=== PATIENT | male | born 1960 | race Caucasian/White ===

== ENCOUNTER → 2016-12-26 | Outpatient (CLI) | payer BC ==
[~2016-12-26] MED LIST: AMX500 PO; ARLOT OT; ASPI81TA28 PO; BNC20 PO; GLCPUNK; GLYB5TAB8 PO; KETO10TA PO; LPT10 PO; METF1000 PO; OXYC-57 PO; PSDUNK; REPA2TAB13 PO; SITA100T3 PO; THERAFLU
[2016-12-26 16:44] LABS: BASO % 0.4 %; BASO ABS # 0.03 K/uL (0-0.2); COMPLETE YES; HEMATOCRIT 41.9 % (42-52); IG% 0.2 %; MEAN CELL VOLUME 82.5 fL (80-100); MEAN CORPUSCULAR HEMOGLOBIN 29.5 pg (25-34); MEAN CORPUSCULAR HGB CONC 35.8 g/dl (32-36); MEAN PLATELET VOLUME 9.3 fL (7.4-10.4); NEUT % 62.4 %; PLATELET COUNT 224 K/uL (130-400); RED BLOOD COUNT 5.08 M/uL (4.7-6.1); WHITE BLOOD COUNT 8.21 K/uL (4.8-10.8)
[2016-12-26 17:11] LABS: BLOOD UREA NITROGEN 12 mg/dl (7-18); BUN/CREATININE RATIO 13.6 (10-20); CALCIUM 9.6 mg/dl (8.5-10.1); CARBON DIOXIDE 28 mmol/L (21-32); CHLORIDE 101 mmol/L (98-107); CREATININE 0.86 mg/dl (0.60-1.40); GLUCOSE 195 mg/dl (70-99); POTASSIUM 4.1 mmol/L (3.5-5.1); SODIUM 135 mmol/L (136-145)
== END | disposition home or self-care (01) ==
LOC: C.CPL 15:53
PROVIDERS: ATTEND Orthopaedic Surgery
DX: M75.21 Bicipital tendinitis, right shoulder (principal)

== ENCOUNTER → 2017-01-05 | Day surgery (SDC) | payer BC ==
[2016-12-30 08:06] VITALS: Ht 182.9 cm; Wt 120.5 kg
[~2017-01-05] VITALS: Ht 182.9 cm; Wt 120.5 kg
[~2017-01-05] MED LIST changes: -AMX500 PO; -ARLOT OT; +ATROPINE SULFATE 0.1 MG/ML 5ML SYR IV PRN; -BNC20 PO; +BUPIVACAINE/EPINEPHRINE 0.25% 1:200,000 30 ML VIAL ONE; +CEFAZOLIN 3000 MG/65 ML D5W IV SCH; +EpHEDrine SULFATE INJ 50 MG/ML AMP IV PRN; +EpINEphrine INJ 1MG/ML AMP 1 MG/ML AMP ONE; +FENTANYL CITRATE INJ 50 MCG/1 ML 2 ML VIAL IV PRN; +FENTANYL CITRATE INJ 50 MCG/1 ML 2 ML VIAL ONE; -GLCPUNK; +LACTATED RINGER'S 1000ML 1,000 ML IV SCH; +LIDOCAINE HCL 2% 2 ML VIAL (20MG/ML) ONE; +METHYLPREDNISOLONE ACETATE 80 MG/ML VIAL ONE; +MIDAZOLAM HCL 1 MG/ML 2ML VIAL ONE; +ONDANSETRON INJ 2 MG/ML 2 ML VIAL IV PRN; +OXYCODONE/ACETAMINOPHEN 5-325 TAB PO PRN; +PROPOFOL IV EMULSION 10 MG/ML 20 ML VIAL IV ONE; -PSDUNK; +ROPIVACAINE 0.5% 5 MG/ML 30 ML VIAL ONE; +SODIUM CHLORIDE 0.9% 1000ML 1,000 ML IV SCH; -THERAFLU
--- NOTE | 2017-01-05 10:47 | History & Physical Bridge - [place] ---
H&P Re-Evaluation Bridge Note: I have examined the patient, reviewed the History & Physical and in the interval since the performance of the History & Physical I have noted the following changes of clinical significance: No changes noted
--- NOTE | 2017-01-05 14:39 | Discharge Instructions-SurgCtr ---
Discharge Instructions Date of Service Jan 05, 2017. Visit Reason for Visit: Right Shulder Joint Pain, Biceps Tendinitis Discharge Discharge Diagnosis / Problem: SAME ABOVE Discharge Goals Goal(s): Decrease discomfort, Improve function Medications Stopped Medications Name(s): Metformin, stopped taking Monday. Restart Stopped Medication(s): AUGUST RESTART 01/05/2017 Activity Recommendations Activity Limitations: as noted below Lifting Limitations: gradually increase as tolerated Exercise/Sports Limitations: gradually increase as tolerated Shower/Bathe: tomorrow Anesthesia . Post Anesthesia Instructions: If you have had General Anesthesia or IV Sedation: * Do not drive today. * Resume driving when surgeon permits. * Do not make important decisions or sign legal documents today. * Call surgeon for: 1. Temperature elevations greater than 101 degrees F. 2. Uncontrollable pain. 3. Excessive bleeding. 4. Persistent nausea and vomiting. 5. Medication intolerance (nausea, vomiting or rash). * For nausea and vomiting use only clear liquids such as: tea, soda, bouillon until nausea subsides, then gradually increase diet as tolerated. * If you have any concerns or questions, call your surgeon's office. If physician is unavailable and it is an emergency, call 911 or go to the nearest emergency room. . Instructions / Follow-Up Instructions / Follow-Up MEDICATIONS: * Resume previous medications unless instructed otherwise by your surgeon. * Always take pain medication on a full stomach or with food to avoid upset stomach. * Do not drink alcohol or drive while taking narcotics. * Ibuprofen or Tylenol may be taken if narcotic not needed. SPECIAL CARE INSTRUCTIONS: __ None _X_ Keep extremity elevated and iced x 48 hours; apply ice 20-30 minutes 8-10 times/day. May remove at night. _X_ Sling ((REMOVE AFTER 24 HOURS) __24 hrs/day __ Remove at night __ Shoulder Immobilizer __ 24 hrs/day __ Remove at night _X_ Dressing __ Maintain until seen in office, may shower with plastic over site _X_ Remove dressings in 24-48 hours and then may shower _X_ Cover incisions with band-aids after showering __ Do not remove steri-strips Call physician if chills or temperature rises above 102 degrees or pain unrelieved by prescribed pain medications at . . Diet Recommendations Home Diet: no limitations Procedures Procedures Performed: Right Shoulder Arthroscopic Capsular Release Pending Studies Studies pending at discharge: no Work Instructions Return To Work: 3 days (OR WHEN PAIN IS CONTROLLED ) Lifting Limitations: none Medical Emergencies . Who to Call and When: Medical Emergencies: If at any time you feel your situation is an emergency, please call 911 immediately. . Non-Emergent Contact Non-Emergency issues call your: Primary Care Provider Call Non-Emergent contact if: you have a fever, temperature is above 101.5 . . "Provider Documentation" section prepared by Jake Murry. .
--- NOTE | 2017-01-05 15:06 | Anesthesiology Progress Note ---
Anesthesia Post Op Note Date & Time Jan 05, 2017 at 15:06 Vital Signs Pain Intensity: 5 Vital Signs Past 12 Hours Date Time Temp Pulse Resp B/P (MAP) Pulse Ox O2 Delivery O2 Flow Rate FiO2 01/05/17 14:36 36.5 66 10 128/83 97 Room Air 01/05/17 13:53 0 01/05/17 13:48 61 11 98 01/05/17 13:48 63 01/05/17 13:46 146/88 01/05/17 13:43 59 13 99 01/05/17 13:43 56 01/05/17 13:41 164/95 01/05/17 13:40 158/93 01/05/17 13:38 62 0 96 01/05/17 13:38 64 01/05/17 11:13 37 75 16 158/94 (115) 96 Room Air Notes Mental Status: alert / awake / arousable, participated in evaluation Pt Amnestic to Procedure: Yes Nausea / Vomiting: adequately controlled Pain: adequately controlled Airway Patency, RR, SpO2: stable & adequate BP & HR: stable & adequate Hydration State: stable & adequate Anesthetic Complications: no major complications apparent
[2017-01-05 15:17] VITALS: TEMP 36.3
--- NOTE | 2017-01-05 15:30 | [facility] Post Operative Brief Note ---
Immediate Operative Summary Operative Date Jan 05, 2017. Pre-Operative Diagnosis Right Shoulder Joint Pain, Biceps Tendonitis Post-Operative Diagnosis same Procedure(s) Performed Right Shoulder Arthroscopic Capsular Release Surgeon Dr. Bradley Weiss Drafting Engineer Surgeon(s) Basilio Murry PA-C Estimated Blood Loss 5cc Findings as above Specimens none Complication(s) None Disposition Recovery Room / PACU
[2017-01-05 15:49] VITALS: BP 138/82; PULSE 64; O2SAT 97
--- NOTE | 2017-01-05 19:26 | OPERATIVE REPORT ---
DATE OF OPERATION: 01/05/2017 PREOPERATIVE DIAGNOSIS: Adhesive capsulitis of the right shoulder. POSTOPERATIVE DIAGNOSIS: Same. PROCEDURE: Right shoulder diagnostic arthroscopy with extensive debridement, lysis of adhesions and manipulation under anesthesia. SURGEON: Dr. Richard Weiss. ABE TEACHER: Basilio Murry PA-C, whose assistance was necessary for positioning of the arm and helping with arthroscopic instrumentation. ANESTHESIA: General with a right interscalene nerve block. COMPLICATIONS: None. CONDITION: Stable to PACU. INDICATIONS: Gurmeet is a pleasant 56-year-old male who presented to my office with chronic pain and tightness of his right shoulder. He was unable to get an MRI. X-rays and clinical examination were diagnostic for adhesive capsulitis of the right shoulder. After failing extensive conservative treatment, he has elected to proceed with a capsular release. OPERATION AND FINDINGS: On 01/05/2017, he arrived at [facility] for the above procedure. He was seen in the preoperative holding area and the operative extremity was identified and signed. He was given a preoperative antibiotic and a right interscalene nerve block. He was taken back to the operating room, laid on the table in supine position and put under general anesthesia. He was then put into the beachchair position. The right shoulder was prepped and draped in sterile fashion. Time-out was done and the patient and operative extremity was properly identified. On preoperative physical examination, he had about 60 degrees of abduction and 40 degrees of external rotation and 0 degrees of internal rotation. A gentle manipulation was done under anesthesia to help facilitate insertion of the arthroscope. The scope was then placed in the posterior portal. Diagnostic arthroscopy showed grade 3 and 4 chondral changes off the posterior aspect of the humeral head. The middle and anterior aspects of the humeral head were intact. There was no cartilage damage on the glenoid. The supraspinatus, infraspinatus, teres minor and subscapularis were all checked and intact. The biceps tendon was intact with a normal size biceps suzanne mechanism. There was significant redness and scarring of the rotator interval as well as the middle glenohumeral ligament and inferior glenohumeral ligament. An anterior portal was made. A shaver was used to start the debridement of the intraarticular structures. Any loose soft tissue remnants were removed. An ablator was then used to do a lysis of adhesions to include complete release of the entire rotator interval all the way back to the base of the coracoid as well as release of the middle glenohumeral ligament and inferior glenohumeral ligament. Time was spent ensuring a complete release and protecting the axillary nerve and subscapularis. A shaver was then used to do a debridement removing all remaining unstable ligament structures and soft tissue. The superior capsule was also debrided. Arthroscopic instruments were then removed from the shoulder and gentle manipulation was done under anesthesia. I was able to get full range of motion of the shoulder. The portal sites were then closed with 3-0 nylon. The shoulder was then injected with 80 mg of Depo-Medrol and 5 mL of Marcaine. He was then placed in a soft dressing and regular arm sling. He was then extubated, transferred to a litter and taken to the postanesthesia care unit in stable condition. He tolerated the procedure well. I attest to the content of the Intraoperative Record and any orders documented therein. Any exception s are noted below.
== END | disposition home or self-care (01) ==
LOC: X.SURG 10:44
PROVIDERS: ATTEND Orthopaedic Surgery
DX: M75.01 Adhesive capsulitis of right shoulder (principal); I10 Essential (primary) hypertension; E78.00 Pure hypercholesterolemia, unspecified; E11.9 Type 2 diabetes mellitus without complications; Z79.84 Long term (current) use of oral hypoglycemic drugs; Z79.899 Other long term (current) drug therapy

== ENCOUNTER → 2017-03-15 | Outpatient (CLI) | payer BC ==
[~2017-03-15] MED LIST changes: -ATROPINE SULFATE 0.1 MG/ML 5ML SYR IV PRN; -BUPIVACAINE/EPINEPHRINE 0.25% 1:200,000 30 ML VIAL ONE; -CEFAZOLIN 3000 MG/65 ML D5W IV SCH; -EpHEDrine SULFATE INJ 50 MG/ML AMP IV PRN; -EpINEphrine INJ 1MG/ML AMP 1 MG/ML AMP ONE; -FENTANYL CITRATE INJ 50 MCG/1 ML 2 ML VIAL IV PRN; -FENTANYL CITRATE INJ 50 MCG/1 ML 2 ML VIAL ONE; -KETO10TA PO; -LACTATED RINGER'S 1000ML 1,000 ML IV SCH; -LIDOCAINE HCL 2% 2 ML VIAL (20MG/ML) ONE; -METHYLPREDNISOLONE ACETATE 80 MG/ML VIAL ONE; -MIDAZOLAM HCL 1 MG/ML 2ML VIAL ONE; -ONDANSETRON INJ 2 MG/ML 2 ML VIAL IV PRN; -OXYC-57 PO; -OXYCODONE/ACETAMINOPHEN 5-325 TAB PO PRN; -PROPOFOL IV EMULSION 10 MG/ML 20 ML VIAL IV ONE; +REPA2TAB12 PO; -REPA2TAB13 PO; -ROPIVACAINE 0.5% 5 MG/ML 30 ML VIAL ONE; -SODIUM CHLORIDE 0.9% 1000ML 1,000 ML IV SCH
[2017-03-15 19:17] LABS: BASO % 0.3 %; BASO ABS # 0.03 K/uL (0-0.2); COMPLETE YES; HEMATOCRIT 41.8 % (42-52); IG% 0.2 %; LYMPH % 36.1 %; LYMPH ABS # 3.11 K/uL (1.2-3.4); MEAN CELL VOLUME 84.6 fL (80-100); MEAN CORPUSCULAR HEMOGLOBIN 29.6 pg (25-34); MEAN CORPUSCULAR HGB CONC 34.9 g/dl (32-36); MEAN PLATELET VOLUME 9.2 fL (7.4-10.4); MONO % 7.7 %; NEUT % 53.7 %; PLATELET COUNT 208 K/uL (130-400); RED BLOOD COUNT 4.94 M/uL (4.7-6.1); WHITE BLOOD COUNT 8.62 K/uL (4.8-10.8)
[2017-03-15 19:53] LABS: BLOOD UREA NITROGEN 15 mg/dl (7-18); BUN/CREATININE RATIO 18.6 (10-20); CALCIUM 9.2 mg/dl (8.5-10.1); CARBON DIOXIDE 30 mmol/L (21-32); CHLORIDE 101 mmol/L (98-107); CREATININE 0.82 mg/dl (0.60-1.40); GLUCOSE 162 mg/dl (70-99); POTASSIUM 3.9 mmol/L (3.5-5.1); SODIUM 134 mmol/L (136-145)
== END | disposition home or self-care (01) ==
LOC: C.LAB 18:44
PROVIDERS: ATTEND Orthopaedic Surgery
DX: Z01.812 Encounter for preprocedural laboratory examination (principal); M65.4 Radial styloid tenosynovitis [de Quervain]

== ENCOUNTER → 2017-03-30 | Day surgery (SDC) | payer BC ==
[2017-03-14 15:25] VITALS: Ht 182.9 cm; Wt 120.5 kg
[~2017-03-30] VITALS: Ht 182.9 cm; Wt 120.5 kg
[~2017-03-30] MED LIST changes: +ATROPINE SULFATE 0.1 MG/ML 5ML SYR IV PRN; +BUPIVACAINE 0.25% 30 ML VIAL ONE; +CEFAZOLIN 2000MG IV PUSH 10 ML IV SCH; +CEFAZOLIN 3000MG IV PUSH 15 ML IV SCH; +EpHEDrine SULFATE INJ 50 MG/ML AMP IV PRN; +FENTANYL CITRATE INJ 50 MCG/1 ML 2 ML VIAL IV PRN; +FENTANYL CITRATE INJ 50 MCG/1 ML 2 ML VIAL ONE; +HYDR-5688 PO; +HYDROCODONE/ACETAMOPHEN 5/325MG TAB PO PRN; +LACTATED RINGER'S 1000ML 1,000 ML IV SCH; +LACTATED RINGER'S 1000ML 500 ML IV SCH; +LIDO 2%/EPINEPHRINE 1:100000 20 ML VIAL INFIL ONE; +LIDOCAINE HCL 2% 2 ML VIAL (20MG/ML) ONE; +MIDAZOLAM HCL 1 MG/ML 2ML VIAL ONE; +ONDANSETRON INJ 2 MG/ML 2 ML VIAL IV PRN; +PROPOFOL IV EMULSION 10 MG/ML 20 ML VIAL IV ONE; +SODIUM CHLORIDE 0.9% 1000ML 1,000 ML IV SCH
--- NOTE | 2017-03-30 07:24 | Discharge Instructions-SurgCtr ---
Discharge Instructions Date of Service Mar 30, 2017. Visit Reason for Visit: Right Radial Styloid Tenosynovitis Discharge Discharge Diagnosis / Problem: SAME ABOVE Discharge Goals Goal(s): Decrease discomfort, Improve function Medications Stopped Medications Name(s): METFORMIN STOPPED ON MONDAY Restart Stopped Medication(s): AUGUST RESTART 03/30/2017 Activity Recommendations Activity Limitations: as noted below Lifting Limitations: until after follow-up appointment Exercise/Sports Limitations: until after follow-up appointment Anesthesia . Post Anesthesia Instructions: If you have had General Anesthesia or IV Sedation: * Do not drive today. * Resume driving when surgeon permits. * Do not make important decisions or sign legal documents today. * Call surgeon for: 1. Temperature elevations greater than 101 degrees F. 2. Uncontrollable pain. 3. Excessive bleeding. 4. Persistent nausea and vomiting. 5. Medication intolerance (nausea, vomiting or rash). * For nausea and vomiting use only clear liquids such as: tea, soda, bouillon until nausea subsides, then gradually increase diet as tolerated. * If you have any concerns or questions, call your surgeon's office. If physician is unavailable and it is an emergency, call 911 or go to the nearest emergency room. . Instructions / Follow-Up Instructions / Follow-Up MEDICATIONS: * Resume previous medications unless instructed otherwise by your surgeon. * Always take pain medication on a full stomach or with food to avoid upset stomach. * Do not drink alcohol or drive while taking narcotics. * Ibuprofen or Tylenol may be taken if narcotic not needed. SPECIAL CARE INSTRUCTIONS: __ None _X_ Keep extremity elevated and iced x 48 hours; apply ice 20-30 minutes 8-10 times/day. May remove at night. __ Sling __24 hrs/day __ Remove at night __ Shoulder Immobilizer __ 24 hrs/day __ Remove at night _X_ Dressing __ Maintain until seen in office, may shower with plastic over site _X_ Remove dressings in 5 DAYS. MAY SHOWER SOONER IF COVERED WITH PLASTIC BAG _X_ Cover incisions with band-aids after showering __ Do not remove steri-strips Call physician if chills or temperature rises above 102 degrees or pain unrelieved by prescribed pain medications at . . Diet Recommendations Home Diet: no limitations Fluid Restriction: None Procedures Procedures Performed: Right Dequervain's Release Pending Studies Studies pending at discharge: no Work Instructions Return To Work: after follow-up Medical Emergencies . Who to Call and When: Medical Emergencies: If at any time you feel your situation is an emergency, please call 911 immediately. . Non-Emergent Contact Non-Emergency issues call your: Primary Care Provider Call Non-Emergent contact if: you have a fever, temperature is above 101.5 . . "Provider Documentation" section prepared by Jake Murry. .
[2017-03-30 07:25] VITALS: TEMP 36.3
--- NOTE | 2017-03-30 07:27 | [facility] Post Operative Brief Note ---
Immediate Operative Summary Operative Date Mar 30, 2017. Pre-Operative Diagnosis Right Radial Styloid Tenosynovitis Post-Operative Diagnosis Same Procedure(s) Performed Right Dequervain's Release Surgeon Dr. Weiss Rehab Services Aide Surgeon(s) None Estimated Blood Loss 5 ml Findings as above Specimens None Complication(s) None Disposition Recovery Room / PACU
--- NOTE | 2017-03-30 07:32 | Anesthesia Progress Nt - [facility] ---
Anesthesia Post Op Note Date & Time Mar 30, 2017 at 07:32 Vital Signs Pain Intensity: 0 Vital Signs Past 12 Hours Date Time Temp Pulse Resp B/P (MAP) Pulse Ox O2 Delivery O2 Flow Rate FiO2 03/30/17 07:25 36.3 72 16 106/65 (79) 94 Room Air 03/30/17 06:35 36.8 72 22 157/80 (105) 95 Room Air Notes Mental Status: alert / awake / arousable, participated in evaluation Pt Amnestic to Procedure: Yes Nausea / Vomiting: adequately controlled Pain: adequately controlled Airway Patency, RR, SpO2: stable & adequate BP & HR: stable & adequate Hydration State: stable & adequate Anesthetic Complications: no major complications apparent
--- NOTE | 2017-03-30 07:34 | OPERATIVE REPORT ---
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 POSTOPERATIVE DIAGNOSIS: Same. PROCEDURE: Open right first dorsal compartment release. SURGEON: Richard Weiss DO. REGULATORY AFFAIRS ANALYST: None. ANESTHESIA: Local with sedation. COMPLICATIONS: None. CONDITION: Stable to PACU. INDICATIONS: Gurmeet is a pleasant 56-year-old male who presented to my office with complaints of right wrist pain. Clinical examination was diagnostic for de Quervain's tenosynovitis. After failing conservative treatment including multiple injections, he elected to undergo an open de Quervain's release. OPERATION AND FINDINGS: On 2016, he arrived at [facility] for the above procedure. He was seen in the preoperative holding area and the operative extremity was identified and signed. He was given a preoperative antibiotic and taken back to the operating room, laid on the table in supine position and given basic sedation. The right wrist was then prepped and draped in sterile fashion. Time-out was done and the patient and operative extremity was properly identified. The surgical site was anesthetized with 8 mL of lidocaine. A longitudinal incision was made directly over the first dorsal compartment. Dissection was taken down through the fascia with care not to disrupt the neurovascular structures. The first dorsal compartment was visualized and a sharp knife and tenotomy scissors were used to release the first dorsal compartment. The abductor pollicis longus and extensor pollicis brevis were individually pulled out of the wound to ensure the appropriate compartment was released. The wound was then irrigated and closed with 4-0 nylon suture. He was then placed in a soft dressing and taken to the postanesthesia care unit in stable condition. He tolerated the procedure well. I attest to the content of the Intraoperative Record and any orders documented therein. Any exception s are noted below.
[2017-03-30 07:45] VITALS: BP 128/73; PULSE 75; O2SAT 95
== END | disposition home or self-care (01) ==
LOC: X.SURG 06:15
PROVIDERS: ATTEND Orthopaedic Surgery
DX: M65.4 Radial styloid tenosynovitis [de Quervain] (principal); I10 Essential (primary) hypertension; E78.00 Pure hypercholesterolemia, unspecified; E11.9 Type 2 diabetes mellitus without complications; Z79.899 Other long term (current) drug therapy; Z79.84 Long term (current) use of oral hypoglycemic drugs; M19.90 Unspecified osteoarthritis, unspecified site

== ENCOUNTER 2018-09-14 05:58 | Inpatient (IN) ==
--- NOTE | 2018-08-06 13:17 | PAT Medication Instructions ---
Medication Instructions Date of Service August 06, 2018 Home Medications aspirin [Aspir-81] 81 mg PO QAM atorvastatin 10 mg PO QAM glyburide 5 mg PO BID losartan 50 mg PO QAM metformin 1,000 mg PO BID repaglinide 2 mg PO TID sitagliptin [Januvia] 100 mg PO QAM DO NOT take the morning of surgery glyburide 5 mg PO BID losartan 50 mg PO QAM metformin 1,000 mg PO BID repaglinide 2 mg PO TID sitagliptin [Januvia] 100 mg PO QAM Take morning of surgery With a small sip of water, OTHERWISE NOTHING TO EAT OR DRINK AFTER MIDNIGHT: aspirin [Aspir-81] 81 mg PO QAM atorvastatin 10 mg PO QAM Take evening before surgery glyburide 5 mg PO BID metformin 1,000 mg PO BID repaglinide 2 mg PO TID Other Notes If you have any questions please call us at [phone] or [phone] or [phone] or [phone]
--- NOTE | 2018-08-07 11:09 | Anesthesiology Consultation ---
Date of Service August 07, 2018 Assessment & Plan (1) Encounter for pre-operative examination: - Check BSG AM DOS Chart Review Chart Review: Acceptable Risk for Surgery and Patient seen in Pre Admission Testing Teaching & Discussion Pre-Anesthesia Teaching/Discussion Notes: Instructed NPO after midnight before surgery,except medications with 15 cc of water. Medication instructions provided according to the PAT guidelines. History Surgery Operation Date: 09/14/18 08:50 Proposed Procedures p Right Total Shoulder Arthroplasty - Richard Weiss DO Height/Weight Height: 6 ft Weight: 121.2 kg Allergies Allergy/AdvReac Type Severity Reaction Status Date / Time ANUSHA Inhibitors AdvReac Unknown CONSTANT Verified 08/02/18 11:21 COUGH lisinopril AdvReac Unknown COUGH Verified 08/02/18 11:21 Medications Home Medications Medication Instructions Recorded Confirmed Last Taken aspirin [Aspir-81] 81 mg PO QAM 08/02/18 08/02/18 08/02/18 atorvastatin 10 mg PO QAM 08/02/18 08/02/18 08/02/18 glyburide 5 mg PO BID 08/02/18 08/02/18 08/02/18 losartan 50 mg PO QAM 08/02/18 08/02/18 08/02/18 metformin 1,000 mg PO BID 08/02/18 08/02/18 08/02/18 repaglinide 2 mg PO TID 08/02/18 08/02/18 08/02/18 sitagliptin [Januvia] 100 mg PO QAM 08/02/18 08/02/18 08/02/18 Past Medical History Medical History Diabetes NIDDM Obesity Osteoarthritis Past Family History Family History Father Family history of Hodgkin's lymphoma Family history of skin cancer Family history of lung cancer Past Surgical History Surgical History History of appendectomy History of colonoscopy History of excision of pilonidal cyst History of hernia surgery CHILDHOOD History of left knee surgery History of shoulder surgery RIGHT CAPSULAR RELEASE History of varicose veins S/P SURGERY Past Anesthesia History No Hx of Anesthesia Complications and No Family Hx of Anesthesia Complications History of PONV No Motion Sickness Screening History of Motion Sickness: No Social History Smoking Status: Never smoker Do You Dip or Chew Tobacco: No (HX OF, QUIT 30 YRS AGO) Hx Alcohol Use: No Hx Substance Use: No substance use type: does not use Exercise / Class Metabolic Activity II 4-5 Yardwork/Stairs/Walk up hill Review of Systems Patient denies chest pain, shortness of breath, dyspnea on exertion, cough, w heezing, palpitations. Physical Exam Vital Signs VITALS BP 143/83 P 68 TEMP 97.8 SP02 96%RA RESP 16 PHYSICAL Full neck and c-spine range of motion. Full TMJ range of motion. TMD 3 finger breaths Mallampati Score 2 Dentition: intact, crowns on molars Lungs: clear throughout to auscultation Cardiac: regular rate and rhythm, no murmurs noted Spine: normal Carotid arteries: negative bruit Extremities: no edema Trimmed dorado Testing Electrocardiogram Date: 08/07/18 Findings: + NSR @ (67) Chest X-Ray Date: 08/07/18 Findings: + NAD Laboratory Results 08/07/18 11:29 08/07/18 11:29 Blood Type A Positive 08/07/18 11:29 Antibody Screen NEGATIVE 08/07/18 11:29 PT 10.3 Seconds (9.0-12.0) 08/07/18 11:29 INR 1.0 (0.9-1.1) 08/07/18 11:29 APTT 25.7 Seconds (21.0-31.0) 08/07/18 11:29 Hemoglobin A1c 8.6 % (4.5-5.6) H 08/07/18 11:29 Surgeon made aware of elevated hgba1c
--- NOTE | 2018-08-07 11:46 | XRay Report ---
XR chest Pre-admission PA/Lat CLINICAL HISTORY: pat preoperative COMPARISON STUDY: No previous studies for comparison. FINDINGS: The bones soft tissues and hemidiaphragms are normal. The cardiomediastinal silhouette is n ormal. The lungs are clear. The pulmonary vasculature is normal. IMPRESSION: Negative chest. The above report was generated using voice recognition software. It may contain grammatical, syntax or spelling errors. Electronically signed by: Chi Hidalgo M.D. 08/07/2018 11:45 AM
[2018-08-07 12:29] LABS: Basophils # (auto) 0.02 K/uL (0-0.2); Basophils % (auto) 0.3 %; Eosinophils # (auto) 0.07 K/uL (0-0.5); Eosinophils % (auto) 1.1 %; Hematocrit (blood only) 41.1 % (42-52); Hemoglobin 14.5 g/dL (14.0-18.0); Immature Granulocytes # (auto) 0.01 K/uL (0.00-0.02); Immature Granulocytes % (auto) 0.2 %; Lymphocytes % (auto) 29.5 %; Mean Corpuscular Hgb Conc 35.3 g/dL (32-36); Mean Corpuscular Volume 83.4 fL (80-100); Mean Platelet Volume 9.3 fL (7.4-10.4); Monocytes % (auto) 9.3 %; Neutrophils # (auto) 3.84 K/uL (1.4-6.5); Neutrophils % (auto) 59.6 %; Platelet Count 209 K/uL (130-400); RDW Coefficient of Variation 12.9 % (11.5-14.5); RDW Standard Deviation 38.9 fL (36.4-46.3); Red Blood Count 4.93 M/uL (4.7-6.1); White Blood Count 6.44 K/uL (4.8-10.8)
[2018-08-07 12:39] LABS: BUN Creatinine Ratio 20.2 (10-20); Calcium 9.4 mg/dl (8.5-10.1); Creatinine Clr Calc Pharmacy 156.5 ml/min; Est GFR (African American) 121.4; Est GFR (Non-African American) 104.8; Potassium 3.8 mmol/L (3.5-5.1)
[2018-08-07 12:40] LABS: Partial Thromboplastin Ratio 0.9; Partial Thromboplastin Time 25.7 Seconds (21.0-31.0); Prothrombin Time 10.3 Seconds (9.0-12.0)
[2018-08-07 12:46] LABS: Estimated Average Glucose 200 mg/dl; Hemoglobin A1C 8.6 % (4.5-5.6)
--- NOTE | 2018-09-11 15:28 | History & Physical Report ---
Date of Service September 11, 2018 Assessment & Plan (1) Primary osteoarthritis of right shoulder: We will proceed with a right total shoulder arthroplasty. Postoperatively he will be placed in a sling and kept overnight in the hospital for postop medical management. He plans to go to outpatient physical therapy at [facility]. Present on Admission?: Yes History of Present Illness Chief Complaint: Primary osteoarthritis of the right shoulder Primary Care Provider: Sheri MurrayDO Levi is a pleasant 57-year-old male who is been dealing with increasing right shoulder pain. I did a right shoulder arthroscopy to include a capsular release in December 2016. During that time I documented extensive arthritis of the humeral head. Unfortunately his symptoms have worsened over the past 2 years. He has elected to proceed with a right total shoulder arthroplasty. Allergies Allergy/AdvReac Type Severity Reaction Status Date / Time ANUSHA Inhibitors AdvReac Unknown CONSTANT Verified 08/02/18 11:21 COUGH lisinopril AdvReac Unknown COUGH Verified 08/02/18 11:21 Home Medications Home Medications Medication Instructions Recorded Confirmed Type aspirin [Aspir-81] 81 mg PO QAM 08/02/18 08/02/18 History atorvastatin 10 mg PO QAM 08/02/18 08/02/18 History glyburide 5 mg PO BID 08/02/18 08/02/18 History losartan 50 mg PO QAM 08/02/18 08/02/18 History metformin 1,000 mg PO BID 08/02/18 08/02/18 History repaglinide 2 mg PO TID 08/02/18 08/02/18 History sitagliptin [Januvia] 100 mg PO QAM 08/02/18 08/02/18 History Past Med/Surg History Medical History Diabetes NIDDM Obesity Osteoarthritis Surgical History History of appendectomy History of colonoscopy History of excision of pilonidal cyst History of hernia surgery CHILDHOOD History of left knee surgery History of shoulder surgery RIGHT CAPSULAR RELEASE History of varicose veins S/P SURGERY Family History Father Family history of Hodgkin's lymphoma Family history of skin cancer Family history of lung cancer Social History Preferred Language: Belarusian Communication Ability: Effective Beliefs That Will Affect Care: None Current Living Situation: Spouse Feels Safe at Home: Yes Smoking Status: Never smoker Hx Alcohol Use: No Hx Substance Use: No Review of Systems All systems reviewed & are unremarkable except as noted in HPI & below Physical Exam Constitutional: WD/WN, vitals as above Eyes: PERRL, conjunctivae normal, anicteric sclerae ENMT: external ear and nose normal, oropharynx normal Neck: trachea midline, no thyromegaly Respiratory: normal respiratory effort Cardiovascular: RRR, no murmur, no edema Gastrointestinal (Abdomen): normal bowel sounds, soft, nontender, no hepat osplenomegaly Musculoskeletal: Physical examination of the right shoulder reveals decreased range of motion and crepitis throughout. There is good strength with full can testing and external rotation. There is tenderness palpation along the anterior glenohumeral joint line. The right upper extremity is neurovascularly intact. Psychiatric: A+Ox3, euthymic affect Results & Data Diagnostic Findings Radiographs of the right shoulder show osteoarthritis of the glenohumeral joint. There is joint space narrowing, osteophyte formation, and [id number] articulation.
[2018-09-14] MEDS ORDERED: ROPIVACAINE 0.5% HCL/PF 150 MG, BUPIVACAINE 0.5% MPF 30 ML, EPINEPHrine 30MG/30ML (OR U... INFIL SCH (06:00)
[2018-09-14] MEDS ORDERED: ACETAMINOPHEN 500 MG TAB PO SCH (06:00)
[2018-09-14] MEDS ORDERED: LR 60ML/HR IV SCH (06:00)
[2018-09-14] MEDS ORDERED: TRANEXAMIC ACID 1,000 MG **IV Pre-op IV SCH (06:00)
[2018-09-14] MEDS ORDERED: FAMOTIDINE 20 MG TAB PO SCH (06:00)
[2018-09-14] MEDS ORDERED: CEFAZOLIN 3000MG 65 ML IV SCH (06:00)
[2018-09-14] MEDS ORDERED: LR 15ML/HR IV SCH (06:00)
[2018-09-14] MEDS ORDERED: GABAPENTIN 300 MG x 2 PO SCH (06:00)
[2018-09-14] MEDS ORDERED: TRANEXAMIC ACID 1,000 MG **IV Intra-op IV SCH (06:30)
[2018-09-14] MEDS ORDERED: POVIDONE-IODINE OP SOLN 30 ML BTL ONE (06:58)
[2018-09-14] MEDS ORDERED: ORTHO JOINT ANESTHETIC ONE (06:58)
--- NOTE | 2018-09-14 06:58 | History & Physical Bridge Note ---
Date of Service September 14, 2018 History & Physical Bridge Note I have examined the patient, reviewed the History & Physical and in the interval since the performance of the History & Physical I have noted the following changes of clinical significance: no changes noted
[2018-09-14] MEDS ORDERED: BUPIVACAINE 0.5 % 5 MG/1 ML PF 10ML VIAL ONE (07:02)
[2018-09-14] MEDS ORDERED: GLYCOPYRROLATE 0.2 MG/ML VIAL ONE (07:07)
[2018-09-14] MEDS ORDERED: NEOSTIGMINE METHYLSULFATE 5 MG/5 ML SYR ONE (07:07)
[2018-09-14] MEDS ORDERED: ONDANSETRON INJ 2 MG/ML 2 ML VIAL ONE ×2 (07:07→09:09)
[2018-09-14] MEDS ORDERED: DEXAMETHASONE SOD INJ 4 MG/ML VIAL ONE (07:07)
[2018-09-14] MEDS ORDERED: LIDOCAINE HCL 2% 2 ML VIAL/AMP(20MG/ML) INFIL ONE (07:07)
[2018-09-14] MEDS ORDERED: PROPOFOL IV EMULSION 10 MG/ML 20 ML VIAL IV ONE (07:07)
[2018-09-14] MEDS ORDERED: MIDAZOLAM HCL 1 MG/ML 2ML VIAL ONE (07:08)
[2018-09-14] MEDS ORDERED: fentaNYL citrate 100 MCG/2 ML VIAL ONE (07:08)
[2018-09-14] MEDS ORDERED: fentaNYL citrate 100 MCG/2 ML VIAL IV PRN (08:05)
[2018-09-14] MEDS ORDERED: ONDANSETRON INJ 2 MG/ML 2 ML VIAL IV PRN ×2 (08:05→11:34)
[2018-09-14] MEDS ORDERED: ePHEDrine sulfate 50 MG/ML AMP IV PRN (08:05)
[2018-09-14] MEDS ORDERED: HYDROmorphone INJ 1 MG/ML SYRINGE IV PRN (08:05)
[2018-09-14] MEDS ORDERED: ATROPINE SULFATE 0.1 MG/ML 10ML SYR IV PRN (08:05)
[2018-09-14] MEDS ORDERED: ROCURONIUM BROMIDE 10 MG/ML 5 ML VIAL ONE (09:07)
[2018-09-14] MEDS ORDERED: PHENYLEPHRINE 100MCG/ML 5ML SYR ONE (09:57)
[2018-09-14] MEDS ORDERED: ePHEDrine sulfate 50 MG/ML SYR ONE (09:57)
--- NOTE | 2018-09-14 10:19 | Operative Report ---
Post Operative Report Pre & Post Diagnosis Operation Date: 09/14/18 08:30 Pre-Op Diagnosis: Right Shoulder Degenerative Joint Disease Post-Op Diagnosis: Right Shoulder Degenerative Joint Disease Procedure Operation Date: 09/14/18 08:30 Actual Procedures p Right Total Shoulder Arthroplasty(Right) - Richard Weiss DO Surgeon Richard Weiss DO Cushion Former Richard Apple PAC Estimated Blood Loss 150 Findings Consistent with Post-Op Diagnosis Specimens Right humeral head Complications none Disposition Disposition: Recovery Room Indications Gurmeet is a pleasant 58-year-old male who presented my office with chronic increasing right shoulder pain. I did a right shoulder arthroscopy on him in the past and found extensive arthritis throughout the humeral head and the glenoid. After failing extensive conservative treatment, he elected to proceed with a right total shoulder arthroplasty. Description of Procedure Implants used: I used a Biomet Comprehensive total shoulder arthroplasty system with a size 14 press fit mini humeral stem, a size 50 x 21 eccentric humeral head, and a medium size glenoid with a Regenerex peg. The glenoid was cemented in place with Palacos G cement. The patient arrived at [facility] for the above procedure. There were seen in the preoperative holding area and the operative extremity was identified and signed. They were given a preoperative antibiotic and an interscalene nerve block. They were taken back to the operating room, laid on table in supine position, and put under general anesthesia. They were then put into the beachchair position. The shoulder was then prepped and draped in sterile fashion. A timeout was done and the patient in the operative extremity was properly identified. A deltopectoral approach was used. Dissection was taken down through the fascia and the deltoid was retracted laterally and the conjoined tendon was retracted medially. The anterior shoulder was exposed. The long head of the biceps tendon was tenodesed to the upper border of the pectoralis major. The subscapularis was then released off the lesser tuberosity with a centimeter of cuff tissue remaining. The inferior capsule was released and the humeral head was dislocated. The rotator cuff was inspected and intact. A canal finding reamer was sent down the center of the humeral canal. Sequential reaming up to a size 14 reamer was done. Offset reamer a proximal humeral resection guide was placed. The proximal humerus was resected at 135 of inclination and 30 of retroversion. Inferior osteophytes were then removed and the glenoid was exposed. Time was spent doing an appropriate labral release. The glenoid measured to be a size medium. A Biomet signature guide was then attached onto the anterior rim of the glenoid. A 3.2 mm Steinmann pin was then placed in the total shoulder arthroplasty hole. The glenoid was then reamed with a propeller reamer. The central post cutter was then used to prepare for the central boss. The cannulated peripheral peg drill guide was then placed and 3 peg holes were drilled. The final size medium glenoid was then cemented in place with Palacos G cement. Surrounding soft tissues were then injected with 100 cc of an orthopedic pain control cocktail. Once cement had dried the proximal humerus was once again exposed. Sequential broaching of the humerus up to a size 14 broach was done. Off that broach a size 50 x 21 eccentric humeral head was trialed. The shoulder was then reduced, brought through a full range of motion and felt to be stable. The shoulder was then dislocated and the broach was removed. The final size 14 mini humeral stem implant was then impacted into place. A size 50 x 21 eccentric humeral head was then impacted onto the humeral stem. The shoulder was then reduced and once again brought through a full range of motion and felt to be stable. The subscapularis was then tenodesed back to the lesser tuberosity with transosseous FiberWire sutures and side to side sutures with the arm in 45 of external rotation. 2 sutures were placed in the lateral rotator interval. A dilute betadyne lavage was then done for 3 minutes. The joint was then irrigated with normal saline solution. Hemostasis was obtained. The skin was then closed with 2-0 Vicryl, 3-0V lock suture, and stefan. A soft dressing was placed as well as a regular arm sling. The patient was then extubated and transferred to a hospital bed. There were taken to the postanesthesia care unit in stable condition. The tolerated the procedure well. I attest to the content of the Intraoperative Record and any orders documented therein. Any exceptions are noted below.
--- NOTE | 2018-09-14 11:22 | Anesthesiology Progress Note ---
Date of Service September 14, 2018 Anesthesia Post Procedure Vital Signs Vital Signs: Temp Pulse Resp BP Pulse Ox 09/14/18 11:10 76 16 129/74 93 09/14/18 11:00 63 13 131/68 98 09/14/18 10:50 67 13 132/72 98 09/14/18 10:42 36.3 C L 72 13 136/73 98 09/14/18 06:20 37.1 C 89 18 164/94 H 96 Pain Intensity Bilateral Back: Pain Intensity: 8 Transfer of Care Handoff Completed per policy Notes Mental Status: alert / awake / arousable and participated in evaluation Patient Amnestic to Procedure: Yes Nausea / Vomiting: adequately controlled Pain: adequately controlled Airway Patency, RR, SpO2: stable & adequate BP & HR: stable & adequate Hydration State: stable & adequate Anesthetic Complications: no major complications apparent and Pt Satisfied with anesthetic care Notes: block is functioning well.
[2018-09-14] MEDS ORDERED: OXYCODONE HCL IR 5 MG TAB (IMMEDIATE RELEASE) PO PRN (11:34)
[2018-09-14] MEDS ORDERED: HYDROmorphone INJ 0.5 MG/0.5 ML SYR IV PRN (11:34)
[2018-09-14] MEDS ORDERED: METOCLOPRAMIDE HCL INJ 5 MG/ML 2 ML VIAL IV PRN (11:34)
[2018-09-14] MEDS ORDERED: BISACODYL 10 MG SUPP PR PRN (11:34)
[2018-09-14] MEDS ORDERED: MAGNESIUM HYDROXIDE SUSP 30 ML UDC PO PRN (11:34)
[2018-09-14] MEDS ORDERED: NALOXONE HCL 0.4 MG/1 ML VIAL/CARP IV PRN (11:34)
--- NOTE | 2018-09-14 11:40 | XRay Report ---
XR shoulder RT min 2V routine CLINICAL HISTORY: Post shoulder surgery COMPARISON STUDY: Right shoulder 09/03/2017. FINDINGS: The patient is status post a right total shoulder arthroplasty. The hardware appears intact . No fracture or dislocation. Skin stefan are in place. IMPRESSION: Status post right total shoulder arthroplasty. No evidence for hardware complication. Electronically signed by: Todd Roberts M.D. 09/14/2018 11:38 AM
[2018-09-14] MEDS ORDERED: PHARMACY GLYCEMIC MGMT CONSULT PRN (11:46)
[2018-09-14] MEDS ORDERED: GLUCAGON FOR INJ 1 MG VIAL IM PRN (12:00)
[2018-09-14] MEDS ORDERED: GLUCOSE 10 TABS/TUBE PO PRN (12:00)
[2018-09-14] MEDS ORDERED: GLUCOSE 40% GEL 15 GM TUBE PO PRN (12:00)
[2018-09-14] MEDS ORDERED: DEXTROSE 50% 50 ML SYRINGE IV PRN (12:00)
[2018-09-14] MEDS ORDERED: CARBOHYDRATES FOR HYPOGLYCEMIA PO PRN (12:00)
[2018-09-14] MEDS: SODIUM CHLORIDE 0.9% 1000ML 1,000 ML IV SCH ×2 (12:55→20:11)
[2018-09-14] MEDS: KETOROLAC 30 MG/ML VIAL IV SCH ×2 (12:58→17:55)
[2018-09-14] MEDS: INSULIN ASPART 100 UNITS/ML 3 ML PEN SC SCH ×3 (13:12→21:27)
[2018-09-14] MEDS ORDERED: INSULIN GLARGINE SOLOSTAR 100 UNITS/ML 3 ML PEN SC ONE ×2 (13:30→14:30)
[2018-09-14] MEDS: ACETAMINOPHEN 500 MG TAB PO SCH ×2 (13:34→21:25)
--- NOTE | 2018-09-14 15:07 | Pharmacy Report ---
Glycemic Control Consultation - Date of Service September 14, 2018 - Scope Scope: Glycemic Pharmacist consulted by Richard Apple PA-C on 09/14/18 for glycemic control and to write orders per [facility] inpatient glycemic control protocol - Objective Weight: 119.8 kg Accuchecks BSG (last 24hrs): 09/14/18 09/14/18 06:49 10:46 POC Glucose 196 H 183 H HbA1c: 8.6 % (4.5-5.6) H 08/07/18 11:29 - Recent Pertinent Medications Outpatient Anti-diabetic Regimen: * Glyburide 5 mg PO BID * Metformin 1000 mg PO BID * Repaglinide 2 mg PO TID prescribed (patient takes BID) * Januvia 100 mg PO QAM * A1c = 8.6 % on 08/07/18 The patient is currently receiving: * Basal insulin: Lantus 11 + 20 units this afternoon * Correctional Insulin: Novolog Correction per scale ACHS Goal Range: Low 110 mg/dL - High 140 mg/dL Correction Factor: 20 mg/dL/unit * Prandial insulin: Per carb ratio of 1 unit per 5 grams CHO consumed * Oral Agents: All on hold post-op Risk Factors for Insulin Resistance: * Steroids: Ortho injection intra-articular contains Dexamethasone 4 mg * Infection: Ancef 2 gm IV q8h post-op x 2 doses. * Pressors: none * IVF: NS at 100 ml/hr * Recent Surgery: R total shoulder arthroplasty * Diet: T2DM - Assessment & Plan Assessment & Plan: ASSESSMENT: * 58 y/o M with Type 2 diabetes admitted for R total shoulder arthroplasty. * Patient is maintained at home on 4 oral diabetes meds. These are all currently being held post-op. * Oral agents are not recommended for inpatient use d/t drug interactions, changing PO intake, and difficulty titrating for acute hyper/hypoglycemia. ADA recommends re-initiating outpatient oral agents 1-2 days prior to discharge if/when appropriate if they were held on admission. * Will utilize SQ basal bolus insulin regimen which is the recommended regimen for inpatient glycemic control. * Will initiate weight based insulin dosing for insulin vidhya patient and titrate based on BSG trends. * Novolog parameters were initially started with a stress factor between 1 and 2 but knowing that patient's fasting was high this AM at 196 and that he was on four oral diabetes meds at home with poor control (A1c = 8.6%), parameters w ere tightened to between a stress of 2 and 3. Further Lantus dose this afternoon was also increased from 11 units to total of 31 units based on 0.25 units/kg/day. PLAN FOR INPATIENT GLYCEMIC CONTROL: * Holding outpatient oral diabetes medications * Basal insulin * Lantus 31 units total this afternoon then re-assess tomorrow AM. * Bolus insulin * NovoLog per scale ACHS or Q6hrs while NPO * Goal Range: Low 110 mg/dL - High 140 mg/dL * Correction Factor: 20 mg/dL/unit * Nutritional / Prandial insulin per carb ratio of 1 unit per 5 grams CHO consumed * Please note that the plan above was derived based on current level of insulin resistance and hospital stress. These recommendations are appropriate for inpatient admission only. Plan of care upon discharge will need to be reassessed to avoid potential outpatient hypo/hyperglycemia. Thank you.
[2018-09-14] MEDS: CEFAZOLIN 2000MG 2,000 MG/15 ML SYR IV SCH (15:58)
[2018-09-14] MEDS ORDERED: METFORMIN HCL 500 MG TAB PO SCH (21:00)
[2018-09-14] MEDS ORDERED: SENNA 8.6 MG TAB PO SCH (21:00)
[2018-09-14] MEDS: DOCUSATE SODIUM 100 MG CAP PO SCH (21:25)
[2018-09-15] MEDS: CEFAZOLIN 2000MG 2,000 MG/15 ML SYR IV SCH (00:45)
[2018-09-15] MEDS: KETOROLAC 30 MG/ML VIAL IV SCH ×2 (00:46→05:34)
[2018-09-15] MEDS: ACETAMINOPHEN 500 MG TAB PO SCH (05:33)
[2018-09-15 06:46] LABS: Basophils # (auto) 0.02 K/uL (0-0.2); Basophils % (auto) 0.2 %; Eosinophils # (auto) 0.05 K/uL (0-0.5); Eosinophils % (auto) 0.6 %; Hematocrit (blood only) 35.7 % (42-52); Hemoglobin 12.4 g/dL (14.0-18.0); Immature Granulocytes # (auto) 0.02 K/uL (0.00-0.02); Immature Granulocytes % (auto) 0.2 %; Lymphocytes # (auto) 1.76 K/uL (1.2-3.4); Lymphocytes % (auto) 19.6 %; Mean Corpuscular Hgb Conc 34.7 g/dL (32-36); Mean Platelet Volume 8.8 fL (7.4-10.4); Monocytes # (auto) 1.01 K/uL (0.11-0.59); Monocytes % (auto) 11.2 %; Neutrophils # (auto) 6.14 K/uL (1.4-6.5); Neutrophils % (auto) 68.2 %; Platelet Count 167 K/uL (130-400); RDW Coefficient of Variation 12.8 % (11.5-14.5); RDW Standard Deviation 38.9 fL (36.4-46.3); Red Blood Count 4.25 M/uL (4.7-6.1)
[2018-09-15 07:20] LABS: BUN Creatinine Ratio 15.9 (10-20); Calcium 8.8 mg/dl (8.5-10.1); Est GFR (African American) 115.3; Est GFR (Non-African American) 99.5; Potassium 3.7 mmol/L (3.5-5.1)
--- NOTE | 2018-09-15 08:30 | Orthopedic Progress Note ---
Date of Service September 15, 2018 Assessment & Plan (1) Primary osteoarthritis of right shoulder: Overall is doing very well. Is not having much pain in the right shoulder. He will be seen by physical therapy this morning to do hand, wrist, and pendulum exercises. He is on oxycodone for pain control. He can be discharged home later this morning with outpatient physical therapy. He will follow-up with orthopedics in 2 weeks. Present on Admission?: Yes Subjective Gurmeet was seen and examined at bedside this morning. Overall he is doing very well. Is not having any pain in the right shoulder. He is happy with his progress at this point. He has no complaints. Physical Exam Musculoskeletal: On physical examination of the right shoulder, the dressing is clean and dry. He is wearing a sling as instructed. His radial, median, and ulnar nerves are checked and intact his wrist. His axillary nerve was not checked yet. Results & Data Vital Signs (Past 12 Hours) Vital Signs Temp Pulse Resp BP Pulse Ox 09/15/18 07:18 36.6 C 60 16 132/77 96 09/15/18 03:52 36.6 C 83 16 129/67 96 09/14/18 23:06 36.9 C 78 16 126/64 98 Laboratory Results H & H 08/07/18 09/15/18 Range/Units 11:29 06:32 Hgb 14.5 12.4 L (14.0-18.0) g/dL Hct 41.1 L 35.7 L (42-52) % Coagulation 08/07/18 Range/Units 11:29 INR 1.0 (0.9-1.1) Diagnostic Findings Postoperative x-rays of the right shoulder show the prosthesis to be in anatomic alignment without any evidence of fracture, dislocation, or loosening.
--- NOTE | 2018-09-15 08:32 | Discharge Summary ---
Date of Service September 15, 2018 Admission HPI Per Admitting Provider Gurmeet is a pleasant 57-year-old male who is been dealing with increasing right shoulder pain. I did a right shoulder arthroscopy to include a capsular release in December 2016. During that time I documented extensive arthritis of the humeral head. Unfortunately his symptoms have worsened over the past 2 years. He has elected to proceed with a right total shoulder arthroplasty. Specialty Data Orthopedic H & H 08/07/18 09/15/18 Range/Units 11:29 06:32 Hgb 14.5 12.4 L (14.0-18.0) g/dL Hct 41.1 L 35.7 L (42-52) % Coagulation 08/07/18 Range/Units 11:29 INR 1.0 (0.9-1.1) Discharge Data Consultations 09/14/18 11:34 Consult Case Management - Discharge Planning Routine Procedures Performed Operation Date: 09/14/18 08:30 Actual Procedures p Right Total Shoulder Arthroplasty(Right) - Richard Weiss DO Hospital Course (1) Primary osteoarthritis of right shoulder: On September 14, 2018 Gurmeet arrived at [facility] and underwent a right total shoulder arthroplasty without complication. He had a general anesthetic and a right interscalene nerve block. Postoperatively he was placed in an arm sling and discharged to general orthopedic floors. His hospital course was uneventful. On postop day #1 his H&H was stable and his pain was well controlled. He was able to participate well with physical therapy doing range of motion exercises. He was on oxycodone for pain control. He was then discharged home with outpatient physical therapy. He will follow-up with orthopedics in 2 weeks. Discharge Instructions Home Medications Medication Instructions Recorded Confirmed aspirin [Aspir-81] 81 mg PO QAM 08/02/18 09/14/18 atorvastatin 10 mg PO QAM 08/02/18 09/14/18 glyburide 5 mg PO BID 08/02/18 09/14/18 losartan 50 mg PO QAM 08/02/18 09/14/18 metformin 1,000 mg PO BID 08/02/18 09/14/18 repaglinide 2 mg PO TID 08/02/18 09/14/18 sitagliptin [Januvia] 100 mg PO QAM 08/02/18 09/14/18 Previous Rx's Medication Instructions Recorded oxycodone 5 - 10 mg PO Q4H PRN #40 tab 09/15/18
[2018-09-15] MEDS ORDERED: SITAGLIPTIN PHOSPHATE 100 MG TAB PO SCH (09:00)
[2018-09-15] MEDS ORDERED: ASPIRIN 81 MG ECTAB PO SCH (09:00)
[2018-09-15] MEDS ORDERED: LOSARTAN POTASSIUM 50 MG TAB PO SCH (09:00)
[2018-09-15] MEDS ORDERED: INSULIN GLARGINE SOLOSTAR 100 UNITS/ML 3 ML PEN SC SCH (09:00)
[2018-09-15] MEDS ORDERED: MULTIVITAMIN TAB PO SCH (09:00)
[2018-09-15] MEDS ORDERED: ATORVASTATIN 10 MG TAB PO SCH (09:00)
[2018-09-15] MEDS: DOCUSATE SODIUM 100 MG CAP PO SCH (09:20)
[2018-09-15] MEDS: INSULIN ASPART 100 UNITS/ML 3 ML PEN SC SCH (09:30)
== END 2018-09-15 11:13 | disposition home or self-care (01) | DRG 483 ==
LOC: ASU 05:58 → 3E 10:47